=== PATIENT | female | born 1940 | race Caucasian/White ===

== ENCOUNTER → 2023-11-14 10:20 | Outpatient (REF) | payer OTHER, SELFPAY | LOC: RCS 10:20 | PROVIDERS: ATTENDING PHYSICIAN Family Medicine | DX: R00.2 Palpitations (principal) | CPT/HCPCS: 93225; 93226 ==

== ENCOUNTER → 2024-02-13 08:55 | Outpatient (REF) | payer OTHER, SELFPAY | LOC: RAD 08:55 | PROVIDERS: ATTENDING PHYSICIAN Surgery Vascular Surgery; FAMILY PHYSICIAN Family Medicine | DX: I73.9 Peripheral vascular disease, unspecified (principal); I70.1 Atherosclerosis of renal artery; I71.40 Abdominal aortic aneurysm, without rupture, unspecified | CPT/HCPCS: 76770; 93922; 93925; 93975 ==

== ENCOUNTER → 2024-03-21 10:39 | Outpatient (REF) | payer OTHER, SELFPAY | LOC: RAD 10:39 | PROVIDERS: ATTENDING PHYSICIAN Surgery Vascular Surgery; FAMILY PHYSICIAN Family Medicine; OTHER PHYSICIAN Chiropractor; OTHER PHYSICIAN Internal Medicine Rheumatology; REFERRING PHYSICIAN Nurse Practitioner Family | DX: Q27.8 Other specified congenital malformations of peripheral vascular system (principal) | CPT/HCPCS: 71275; Q9967 ==

== ENCOUNTER → 2024-10-18 10:08 | Outpatient (REF) | payer OTHER, SELFPAY ==
[2024-10-18 13:06] LABS: Blood Urea Nitrogen 19 mg/dl (7-17); Calcium 9.5 mg/dl (8.4-10.2); Carbon Dioxide 27 mmol/L (22-30); Chloride 98 mmol/L (98-107); Glucose 108 mg/dl (70-99); Potassium 5.3 mmol/L (3.5-5.1); Sodium 136 mmol/L (135-145); eGFR > 60.00
== END ==
LOC: REG 10:08
PROVIDERS: ATTENDING PHYSICIAN Surgery Vascular Surgery; FAMILY PHYSICIAN Family Medicine
DX: I71.40 Abdominal aortic aneurysm, without rupture, unspecified (principal)
CPT/HCPCS: 36415; 80048

== ENCOUNTER → 2024-11-06 10:33 | Outpatient (REF) | payer OTHER, SELFPAY | LOC: RAD 10:33 | PROVIDERS: ATTENDING PHYSICIAN Surgery Vascular Surgery; FAMILY PHYSICIAN Family Medicine | DX: Q27.8 Other specified congenital malformations of peripheral vascular system (principal); I71.40 Abdominal aortic aneurysm, without rupture, unspecified | CPT/HCPCS: 71275; Q9967 ==

== ENCOUNTER → 2025-02-27 09:57 | Outpatient (REF) | payer OTHER, SELFPAY | LOC: DHVS 09:57 | PROVIDERS: ATTENDING PHYSICIAN Surgery Vascular Surgery; FAMILY PHYSICIAN Family Medicine | DX: I70.1 Atherosclerosis of renal artery (principal); I71.40 Abdominal aortic aneurysm, without rupture, unspecified | CPT/HCPCS: 76770; 93975 ==

== ENCOUNTER → 2025-07-25 13:19 | Outpatient (REF) | payer OTHER, SELFPAY | LOC: RCS 13:19 | PROVIDERS: ATTENDING PHYSICIAN Internal Medicine; FAMILY PHYSICIAN Family Medicine | DX: I49.1 Atrial premature depolarization (principal); I10 Essential (primary) hypertension; I71.40 Abdominal aortic aneurysm, without rupture, unspecified; I44.4 Left anterior fascicular block; I48.0 Paroxysmal atrial fibrillation | CPT/HCPCS: 93306 ==